=== PATIENT | male | born 1970 | race Hispanic/Latino ===

== ENCOUNTER 2019-07-02 15:01 | Emergency (ER) | payer SELFPAY ==
[2019-07-02] MEDS ORDERED: Ketorolac Tromethamine 60 MG/2 ML VIAL ONE (15:37)
--- NOTE | 2019-07-02 15:51 | RAD ---
Exam: Right RIBS 2 views, chest one view: HISTORY: Injury following a fall FINDINGS: No significant acute intrathoracic disease. No pneumothorax or pleural effusion. There is minimal cor tical irregularity of the right ninth posterior lateral rib which could represent an acute fracture. IMPRESSION: Fracture, possibly acute involving the right ninth rib.
== END 2019-07-02 16:11 | disposition home or self-care (01) ==
LOC: ERS 15:01
DX: S22.31XA Fracture of one rib, right side, initial encounter for closed fracture (principal); W20.8XXA Other cause of strike by thrown, projected or falling object, initial encounter
CPT/HCPCS: 96372; J1885